=== PATIENT | female | born 1995 | race African-American/Black ===

== ENCOUNTER → 2016-07-18 | Outpatient (CLI) | payer BC, OTHER ==
[~2016-07-18] MED LIST: DEXT-119 PO; HYDR200T5 PO; IBUP-1050 PO; MYCO500T4 PO; OXYC1TAB3 PO; WARF4TAB PO; WARF4TAB8 PO
[2016-07-22 14:17] LABS: CHLAMYDIA TRACH RNA*** NOT DETECTED (NOT DETECTED); GC (NEIS GONORRHOEAE)RNA** NOT DETECTED (NOT DETECTED); HERPES SIMPLEX CULT SOURCE GENITAL-VULVA; HERPES SIMPLEX VIRUS CULT ISOLATED (NOT ISOLATED)
[2016-07-23 13:56] LABS: HSVTYPE2REFLEX ONLY!DON'T ORDR ISOLATED (NOT ISOLATED)
== END | disposition home or self-care (01) ==
LOC: C.LABSPEC 16:21
PROVIDERS: ATTEND Obstetrics & Gynecology
DX: N94.9 Unspecified condition associated with female genital organs and menstrual cycle (principal); N89.8 Other specified noninflammatory disorders of vagina; Z11.3 Encounter for screening for infections with a predominantly sexual mode of transmission

== ENCOUNTER → 2016-07-24 | Outpatient (CLI) | payer BC ==
[2016-07-26 18:32] LABS: HERPES SIMPLEX AB IGG-2 >5.00; HSV1 AB IGM Negative (Negative); HSV2 AB IGM Negative (Negative)
== END | disposition home or self-care (01) ==
LOC: C.LAB1850 12:09
PROVIDERS: ATTEND Obstetrics & Gynecology
DX: A60.00 Herpesviral infection of urogenital system, unspecified (principal)

== ENCOUNTER 2016-08-09 12:59 | Emergency (ER) | payer BC ==
[~2016-08-09] VITALS: Ht 160 cm; Wt 54.8 kg
[~2016-08-09 12:59] MED LIST changes: -DEXT-119 PO; -IBUP-1050 PO; -OXYC1TAB3 PO
[2016-08-09 13:00] VITALS: TEMP 36.9; Ht 160 cm; Wt 54.8 kg
[2016-08-09] MEDS ORDERED: DEXT-119 PO (13:30)
[2016-08-09] MEDS ORDERED: IBUP-1050 PO (13:30)
[2016-08-09] MEDS ORDERED: ONDANSETRON INJ 2 MG/ML 2 ML VIAL IV STA (13:52)
[2016-08-09] MEDS ORDERED: SODIUM CHLORIDE 0.9% 1000ML 1,000 ML IV STA (13:52)
[2016-08-09] MEDS ORDERED: KETOROLAC TROMETHAMINE 30 MG/ML VIAL IV STA (13:52)
[2016-08-09] MEDS ORDERED: OPTIRAY 320 IV PRN (14:15)
[2016-08-09 14:17] LABS: BASO % 0.2 %; BASO ABS # 0.01 K/uL (0-0.2); COMPLETE YES; EOS % 1.5 %; HEMATOCRIT 37.6 % (37-47); IG% 0.4 %; LYMPH % 22.2 %; LYMPH ABS # 1.06 K/uL (1.2-3.4); MEAN CELL VOLUME 81.7 fL (80-100); MEAN CORPUSCULAR HEMOGLOBIN 27.6 pg (25-34); MEAN CORPUSCULAR HGB CONC 33.8 g/dl (32-36); MEAN PLATELET VOLUME 10.2 fL (7.4-10.4); MONO % 6.7 %; PLATELET COUNT 257 K/uL (130-400); WHITE BLOOD COUNT 4.78 K/uL (4.8-10.8)
[2016-08-09 14:36] LABS: ALT/SGPT 21 U/L (12-78); BLOOD UREA NITROGEN 7 mg/dl (7-18); BUN/CREATININE RATIO 11.8 (10-20); CALCIUM 9.4 mg/dl (8.5-10.1); CARBON DIOXIDE 21 mmol/L (21-32); CHLORIDE 104 mmol/L (98-107); CREATININE 0.56 mg/dl (0.60-1.20); GLUCOSE 75 mg/dl (70-99); POTASSIUM 3.8 mmol/L (3.5-5.1); SODIUM 136 mmol/L (136-145)
[2016-08-09 14:38] LABS: ALKALINE PHOSPHATASE 140 U/L (45-117); AST/SGOT 22 U/L (15-37)
[2016-08-09 14:41] LABS: MANUAL MICROSCOPIC REQUIRED? YES; URINE APPEARANCE CLEAR (CLEAR); URINE BILIRUBIN NEG (NEG); URINE COLOR YELLOW; URINE NITRITE NEG (NEG); URINE SPECIFIC GRAVITY >= 1.030 (1.000-1.030); UROBILINOGEN NEG (NEG)
[2016-08-09 14:46] LABS: REVIEW REQ? NO
[2016-08-09 14:56] LABS: URINE BACTERIA 1+ (NEG)
[2016-08-09 14:57] LABS: URINE MUCUS PRESENT (NONE PRSENT)
[2016-08-09 14:58] LABS: ZZUR CULT IF INDIC CLEAN CATCH NO
--- NOTE | 2016-08-09 15:29 | DIAGNOSTIC IMAGING REPORT ---
EXAMINATION: PELVIC ULTRASOUND CLINICAL HISTORY: lower abd pain on right COMPARISON STUDY: None FINDINGS: The uterus measured 7.6 cm. Central gestational sac appearing process at the level of the uterine fundus. A pole is not identified.. The endometrial stripe measured difficult to define. The right ovary measured not well seen. The left ovary measured 2.3 cm maximum dimension. Normal vascular flow. Study is difficult to interpret as there is a suggestion of bulky masslike changes within the pelvis and uterine regions. These appear to be primarily solid with Minimal cystic components. Etiology is unclear. Endometriosis is a diagnostic possibility as are multiple exophytic fibroids. There was no evidence of pathologic free pelvic fluid. IMPRESSION: 1. Difficult scan to interpret. 2. Abnormal soft tissue occupying the bulk of the pelvis and pelvic cul-de-sac in a periuterine distribution. 3. Possible empty intrauterine gestational sac 4. Exophytic fibroids, endometriomas, versus other diagnostic possibilities exist. 5. CT study of the abdominal and pelvic region is suggested Electronically signed by: Enrrique Andrade M.D. 08/09/2016 3:27 PM Dictated Date/Time: 08/09/2016 3:23 PM
--- NOTE | 2016-08-09 17:05 | DIAGNOSTIC IMAGING REPORT ---
ABDOMEN AND PELVIS CT WITH IV AND ORAL CONTRAST CT DOSE: 262.26 mGy.cm HISTORY: Pelvic pain right lower abd pain TECHNIQUE: Multiaxial CT images of the abdomen and pelvis were performed following the use of intravenous and oral contrast. COMPARISON STUDY: None. FINDINGS: Lung bases are clear. Liver spleen and pancreas are uniform. Kidneys enhance uniformly. The upper abdominal bowel pattern is nonobstructive. Gallbladder is negative for distention. There is a small amount of free fluid within the right paracolic gutter region. Terminal ileum is unremarkable. The appendix appears to be identified medially anterior to the right iliopsoas musculature shows no definitive inflammatory change. Evaluation of the pelvis shows a small amount of free ascites. Appears to be a complex soft tissue mass displacing the uterus anteriorly. The ovaries are not identifiable as a independent entities. The soft tissue mass component with cystic components measures 9 x 9 cm. There is again a trace amount of free ascites. Endometrium at the level of the uterine fundus is thickened at 2 cm. There is fluid within the central canal at the level of the fundus. Bladder is midline. Etiology is uncertain on the absence of additional data. Possibility of endometrioma versus diffuse pelvic inflammatory change demonstrated consideration. There are test was positive the possibility of a ruptured ectopic may be a consideration. Nevertheless, the bulk of the findings appear to relate to soft tissue findings. IMPRESSION: 1. Large abnormal soft tissue mass occupying the bulk of the low pelvis. 2. Maximum dimensions are 9 x 9 cm, with evidence for small components of cystic degeneration. 3. Diagnostic considerations must include endometriosis, pelvic inflammatory change, versus a variety of other potential etiologies. 4. The appendix is not well seen although its segmental visualized components appear unremarkable. 5. Trace ascites within the pelvis and right paracolic gutter region. 6. Somewhat distended fundal central uterine canal with mild endometrial prominence 7. MANAGER LINUX consultation is suggested Electronically signed by: Enrrique Andrade M.D. 08/09/2016 5:03 PM Dictated Date/Time: 08/09/2016 4:55 PM
[2016-08-09] MEDS ORDERED: OXYC1TAB3 PO (18:05)
[2016-08-09 18:15] VITALS: BP 98/66; PULSE 67; O2SAT 100
--- NOTE | 2016-08-09 19:39 | EMERGENCY ROOM VISIT NOTE ---
History Report prepared by Andrea: Benito Astorga Under the Supervision of: Dr. Jeb Samuel D.O. First contact with patient: 13:28 Chief Complaint: PELVIC PAIN Stated Complaint: PELVIC PAIN History of Present Illness The patient is a 20 year old female who presents to the Emergency Room with complaints of persistent lower pelvic pain beginning about 3 days ago. She notes she is not due for her cycle for another 10 days. She notes she started having white, non-foul smelling discharge beginning this morning, and began bleeding just recently this afternoon while in the ER. She reports it is not normal for her to have discharge before her period. The patient notes having similar pain before in the past which was determined to be an ovarian cyst that was not removed. She has not had any pain or burning with urination. She has been unable to pass gas, and has not have a full bowel movement. She is sexually active and still has her gallbladder and appendix. She has not started any new medications. She does admit to a history of previous ovarian cyst. Last mental. Was just about 2 weeks ago. Source of History: patient Onset: about 3 days ago Position: pelvis (lower) Quality: other (pelvic pain) Timing: other (persistent) Associated Symptoms: No urinary symptoms Note: The patient reports having white discharge, vaginal bleeding, and difficulty with bowel movements. Review of Systems See HPI for pertinent positives & negatives. A total of 10 systems reviewed and were otherwise negative. Past Medical & Surgical Medical Problems: (1) Lupus (2) Pulmonary embolism (3) TIA (transient ischemic attack) Family History No pertinent family history stated. Social History Smoking Status: Current Every Day Smoker Alcohol Use: none Drug Use: none Occupation Status: [employer] student Current/Historical Medications Scheduled Dextromethorphan-Phenylephrine (Day Time Cold/Flu Relief), 30 ML PO DAILY Hydroxychloroquine Sulfate (Plaquenil), 200 MG PO DAILY Mycophenolate Mofetil (Cellcept), 1,000 MG PO DAILY Warfarin Sodium (Coumadin), 8 MG PO DAILY@2200 Scheduled PRN Ibuprofen (Advil), 200-600 MG PO Q4H PRN for Pain Oxycodone Immediate Rel Tab (Roxicodone Ir), 5 MG PO Q6H PRN for Pain Allergies Coded Allergies: Heparin (Verified Allergy, Intermediate, Hives, 08/09/16) Patient reports that she can take LMWH without problem; gets hives with UFH Fondaparinux (Verified Allergy, Mild, HIVES, 08/09/16) Physical Exam Vital Signs Date Time Temp Pulse Resp B/P Pulse Ox O2 Delivery O2 Flow Rate FiO2 08/09/16 18:15 67 98/66 100 Room Air 08/09/16 16:34 65 20 116/69 95 08/09/16 13:00 36.9 86 20 118/87 97 Room Air Physical Exam GENERAL: Sitting up in bed, alert, well appearing, well nourished, no distress, non-toxic EYE EXAM: normal conjunctiva OROPHARYNX: no exudate, no erythema, lips, buccal mucosa, and tongue normal and mucous membranes are moist NECK: supple, no nuchal rigidity, no adenopathy, non-tender LUNGS: Clear to auscultation. Normal chest wall mechanics HEART: no murmurs, S1 normal and S2 normal ABDOMEN: abdomen soft; minimal tenderness in the suprapubic and right lower quadrant; normo-active bowel sounds, no masses, no rebound or guarding. BACK: Back is symmetrical on inspection and there is no deformity, no midline tenderness, no CVA tenderness. SKIN: no rashes and no bruising UPPER EXTREMITIES: upper extremities are grossly normal. LOWER EXTREMITIES: No pitting edema. NEURO EXAM: Normal sensorium, cranial nerves II-XII grossly intact, normal speech, no gross weakness of arms, no gross weakness of legs. Gross sensation intact. PELVIC: Normal external genitalia; normal vaginal mucosa; small amount of blood in the vaginal vault; cervix is closed. Medical Decision & Procedures ER Provider Diagnostic Interpretation: Radiology results have been interpreted by the radiologist and reviewed by me. ABDOMEN AND PELVIS CT WITH IV AND ORAL CONTRAST FINDINGS: Lung bases are clear. Liver spleen and pancreas are uniform. Kidneys enhance uniformly. The upper abdominal bowel pattern is nonobstructive. Gallbladder is negative for distention. There is a small amount of free fluid within the right paracolic gutter region. Terminal ileum is unremarkable. The appendix appears to be identified medially anterior to the right iliopsoas musculature shows no definitive inflammatory change. Evaluation of the pelvis shows a small amount of free ascites. Appears to be a complex soft tissue mass displacing the uterus anteriorly. The ovaries are not identifiable as a independent entities. The soft tissue mass component with cystic components measures 9 x 9 cm. There is again a trace amount of free ascites. Endometrium at the level of the uterine fundus is thickened at 2 cm. There is fluid within the central canal at the level of the fundus. Bladder is midline. Etiology is uncertain on the absence of additional data. Possibility of endometrioma versus diffuse pelvic inflammatory change demonstrated consideration. There are test was positive the possibility of a ruptured ectopic may be a consideration. Nevertheless, the bulk of the findings appear to relate to soft tissue findings. IMPRESSION: 1. Large abnormal soft tissue mass occupying the bulk of the low pelvis. 2. Maximum dimensions are 9 x 9 cm, with evidence for small components of cystic degeneration. 3. Diagnostic considerations must include endometriosis, pelvic inflammatory change, versus a variety of other potential etiologies. 4. The appendix is not well seen although its segmental visualized components appear unremarkable. 5. Trace ascites within the pelvis and right paracolic gutter region. 6. Somewhat distended fundal central uterine canal with mild endometrial prominence 7. SEAMER E[employer]IC BAND consultation is suggested Electronically signed by: Enrrique Andrade M.D. 08/09/2016 5:03 PM Dictated Date/Time: 08/09/2016 4:55 PM EXAMINATION: PELVIC ULTRASOUND FINDINGS: The uterus measured 7.6 cm. Central gestational sac appearing process at the level of the uterine fundus. A pole is not identified.. The endometrial stripe measured difficult to define. The right ovary measured not well seen. The left ovary measured 2.3 cm maximum dimension. Normal vascular flow. Study is difficult to interpret as there is a suggestion of bulky masslike changes within the pelvis and uterine regions. These appear to be primarily solid with Minimal cystic components. Etiology is unclear. Endometriosis is a diagnostic possibility as are multiple exophytic fibroids. There was no evidence of pathologic free pelvic fluid. IMPRESSION: 1. Difficult scan to interpret. 2. Abnormal soft tissue occupying the bulk of the pelvis and pelvic cul-de-sac in a periuterine distribution. 3. Possible empty intrauterine gestational sac 4. Exophytic fibroids, endometriomas, versus other diagnostic possibilities exist. 5. CT study of the abdominal and pelvic region is suggested Electronically signed by: Enrrique Andrade M.D. 08/09/2016 3:27 PM Dictated Date/Time: 08/09/2016 3:23 PM Laboratory Results 08/09/16 14:05 Red Blood Count 4.60, Mean Corpuscular Volume 81.7, Mean Corpuscular Hemoglobin 27.6, Mean Corpuscular Hemoglobin Concent 33.8, Mean Platelet Volume 10.2, Neutrophils (%) (Auto) 69.0, Lymphocytes (%) (Auto) 22.2, Monocytes (%) (Auto) 6.7, Eosinophils (%) (Auto) 1.5, Basophils (%) (Auto) 0.2, Neutrophils # (Auto) 3.30, Lymphocytes # (Auto) 1.06, Monocytes # (Auto) 0.32, Eosinophils # (Auto) 0.07, Basophils # (Auto) 0.01 08/09/16 14:05 Test 08/09/16 14:05 08/09/16 14:10 08/09/16 17:30 White Blood Count 4.78 K/uL (4.8-10.8) Red Blood Count 4.60 M/uL (4.2-5.4) Hemoglobin 12.7 g/dL (12.0-16.0) Hematocrit 37.6 % (37-47) Mean Corpuscular Volume 81.7 fL (80-100) Mean Corpuscular Hemoglobin 27.6 pg (25-34) Mean Corpuscular Hemoglobin Concent 33.8 g/dl (32-36) Platelet Count 257 K/uL (130-400) Mean Platelet Volume 10.2 fL (7.4-10.4) Neutrophils (%) (Auto) 69.0 % Lymphocytes (%) (Auto) 22.2 % Monocytes (%) (Auto) 6.7 % Eosinophils (%) (Auto) 1.5 % Basophils (%) (Auto) 0.2 % Neutrophils # (Auto) 3.30 K/uL (1.4-6.5) Lymphocytes # (Auto) 1.06 K/uL (1.2-3.4) Monocytes # (Auto) 0.32 K/uL (0.11-0.59) Eosinophils # (Auto) 0.07 K/uL (0-0.5) Basophils # (Auto) 0.01 K/uL (0-0.2) RDW Standard Deviation 42.6 fL (36.4-46.3) RDW Coefficient of Variation 14.4 % (11.5-14.5) Immature Granulocyte % (Auto) 0.4 % Immature Granulocyte # (Auto) 0.02 K/uL (0.00-0.02) Anion Gap 11.0 mmol/L (3-11) Est Creatinine Clear Calc Drug Dose 132.5 ml/min Estimated GFR () > 150.0 Estimated GFR (Non- 134.2 BUN/Creatinine Ratio 11.8 (10-20) Calcium Level 9.4 mg/dl (8.5-10.1) Total Bilirubin 0.3 mg/dl (0.2-1) Direct Bilirubin < 0.1 mg/dl (0-0.2) Aspartate Amino Transf (AST/SGOT) 22 U/L (15-37) Alanine Aminotransferase (ALT/SGPT) 21 U/L (12-78) Alkaline Phosphatase 140 U/L (45-117) Total Protein 9.9 gm/dl (6.4-8.2) Albumin 3.7 gm/dl (3.4-5.0) Lipase 75 U/L (73-393) Urine Color YELLOW Urine Appearance CLEAR (CLEAR) Urine pH 6.0 (4.5-7.5) Urine Specific [place] >= 1.030 (1.000-1.030) Urine Protein 1+ (NEG) Urine Glucose (UA) NEG (NEG) Urine Ketones TRACE (NEG) Urine Occult Blood 3+ (NEG) Urine Nitrite NEG (NEG) Urine Bilirubin NEG (NEG) Urine Urobilinogen NEG (NEG) Urine Leukocyte Esterase NEG (NEG) Urine RBC 5-10 /hpf (0-4) Urine WBC 1-5 /hpf (0-5) Urine Epithelial Cells >30 /lpf (0-5) Urine Bacteria 1+ (NEG) Urine Hyaline Casts 5-10 /lpf (0-5) Urine Mucus PRESENT (NONE PRSENT) Urine Test NEG (NEG) Laboratory results per my review. Medications Administered Medications (Trade) Dose Ordered Sig/Kishan Route Start Time Stop Time Status Last Admin Dose Admin Sodium Chloride (Nss 1000ml) 1,000 ml @ 999 mls/hr Q1H1M STAT IV 08/09/16 13:52 08/09/16 14:52 DC 08/09/16 14:10 999 MLS/HR Ondansetron HCl (Zofran Inj) 4 mg NOW STAT IV 08/09/16 13:52 08/09/16 13:54 DC 08/09/16 14:10 4 MG Ketorolac Tromethamine (Toradol Inj) 30 mg NOW STAT IV 08/09/16 13:52 08/09/16 13:54 DC 08/09/16 14:11 30 MG ED Course ED COURSE: Vital signs were reviewed and showed normal. The patients medical record was reviewed The above diagnostic studies were performed and reviewed. ED treatments and interventions as stated above. 1342: The patient was evaluated in room C1B. A complete history and physical examination was performed. 1352: Ordered Toradol Inj 30 mg IV, Zofran Inj 4 mg IV, and NSS 1,000 ml @ 999 mls/hr IV. 1745: I spoke with Dr. Wyatt. He will see the patient in his office in 2 days. 1610: I reassessed the patient and she is doing well. 1615: Upon reevaluation, the patient is doing well.I discussed my findings with the patient and she understands and agrees with the treatment plan. Based on the patients age, coexisting illnesses, exam and lab findings the decision to treat as an outpatient was made. The patient remained stable while under my care. The patient appeared well at the time of discharge. Medical Decision Differential diagnoses includes but is not limited to gastritis, peptic ulcer disease, GERD, gallbladder disease, pancreatitis, small bowel obstruction, acute coronary syndrome, pericarditis, ischemic bowel, irritable bowel disease, irritable bowel syndrome, appendicitis, diverticulitis, malignancy, hernia, urinary tract infection, torsion, perforation, trauma, infectious. Patient is a 20-year-old female who presents the ER for abdominal pain which started 3 days ago. She notes that it's in her lower pelvic region. She does describe a faint white vaginal discharge which has now turned into vaginal bleeding today. Last menstrual cycle was about 2 weeks ago. Urine was negative. She is due for period in about 10 days. Labs show no significant leukocytosis or anemia. BMP along with LFTs, bilirubin and lipase is unremarkable. UA was contaminated with greater than 30 epithelial cells. GC ankle many were pending. Ultrasound of pelvis shows a large pelvic mass with flow to the left ovary. The right ovary was not well seen secondary to a mass. CT of her abdomen pelvis confirms this and they're uncertain of the true cause of it. Patient rested fairly comfortably and was discussed with gynecology. Patient was given a dose of Toradol and felt significantly better. She is discharged follow-up with oncology on Thursday. She was given a prescription of OxyIR. I favor that her symptoms are likely secondary to this large mass. Discussed with Pt concerning signs and symptoms to watch out for. Pt was instructed to follow up with their PCP and discussed with the patient their option to return to the ED at anytime for persistent or worsening symptoms. The appropriate anticipatory guidance and out-patient management, including indications for return to the emergency department, were explained at length to the patient and understood. [place] Drug Monitoring Program Search Results: patient reviewed within database, no issues identified Consults Time Called: 1739 Consulting Physician: Dr. Wyatt Returned Call: [phone] Wyatt. He will see the patient in his office in 2 days. Impression Primary Impression: Pelvic mass in female Additional Impression: Vaginal bleeding Scribe Attestation The scribe's documentation has been prepared under my direction and personally reviewed by me in its entirety. I confirm that the note above accurately reflects all work, treatment, procedures, and medical decision making performed by me. Departure Information Dispostion Home / Self-Care Prescriptions Oxycodone Immediate Rel Tab (ROXICODONE IR) 5 Mg Tab 5 MG PO Q6H Y for Pain, #15 TAB Prov: Jeb Samuel, 08/09/16 Referrals No Doctor, Assigned (PCP) Patient Instructions ED Pelvic Pain [facility], [facility] Additional Instructions Please follow up with your labor and delivery nurse within the next 24-48 hours. Any worsening of your symptoms, please return to the ED immediately. This includes passing out, worsening bleeding, worsening pain, persistent nausea vomiting, or any other concerning signs or symptoms from your standpoint. You were given medications during this visit that will inhibit your ability to drive, operate machinery and work. Please do NOT drive, operate machinery or work for the next 12hrs. You were also given a prescription for a narcotic/ OxyIR. While taking this medication you should also not drive, operate machinery and or work. Again please call your REHABILITATION SPECIALIST doctor on Thursday morning to be seen as soon as possible. Please refrain from any intercourse. Absolutely nothing in the vagina until you 're seen by your labor and delivery nurse. Problem Qualifiers
[2016-08-12 21:52] LABS: CHLAMYDIA TRACH RNA*** NOT DETECTED (NOT DETECTED); GC (NEIS GONORRHOEAE)RNA** NOT DETECTED (NOT DETECTED)
== END 2016-08-09 18:25 | disposition home or self-care (01) ==
LOC: C.EDB 13:00 → C.EDC 18:25
DX: R19.00 Intra-abdominal and pelvic swelling, mass and lump, unspecified site (principal); N93.9 Abnormal uterine and vaginal bleeding, unspecified; N83.201 Unspecified ovarian cyst, right side; M32.9 Systemic lupus erythematosus, unspecified; F17.200 Nicotine dependence, unspecified, uncomplicated; Z86.73 Personal history of transient ischemic attack (TIA), and cerebral infarction without residual deficits; Z86.711 Personal history of pulmonary embolism; Z79.01 Long term (current) use of anticoagulants; Z79.899 Other long term (current) drug therapy; Z88.8 Allergy status to other drugs, medicaments and biological substances

== ENCOUNTER 2016-08-11 20:06 | Emergency (ER) | payer BC ==
[~2016-08-11] VITALS: Ht 160 cm; Wt 54.5 kg
[~2016-08-11 20:06] MED LIST changes: +DEXT-119 PO; +IBUP-1050 PO; +OXYC1TAB3 PO; -WARF4TAB8 PO
[2016-08-11 20:10] VITALS: Ht 160 cm; Wt 54.5 kg
[2016-08-11] MEDS ORDERED: FENTANYL CITRATE INJ 50 MCG/1 ML 2 ML VIAL IV STA (20:31)
[2016-08-11] MEDS ORDERED: SODIUM CHLORIDE 0.9% 1000ML 1,000 ML IV STA (20:31)
[2016-08-11] MEDS ORDERED: ONDANSETRON INJ 2 MG/ML 2 ML VIAL IV STA (20:31)
--- NOTE | 2016-08-11 20:37 | EMERGENCY ROOM VISIT NOTE ---
History Report prepared by Andrea: Camden Guzmán Under the Supervision of: Dr. Jose Sevilla M.D. First contact with patient: 20:21 Chief Complaint: ABDOMINAL PAIN Stated Complaint: ABDOMINAL PAIN History of Present Illness The patient is a 20 year old female who presents to the Emergency Room with complaints of persistent lower abdominal pain that worsened prior to arrival today. She was diagnosed last year with a mass in her pelvis at [facility], but has not been followed up about it since then. She also has lupus with a history of a blood clot in her lung. Earlier today, the patient passed out, and she gets lightheaded when standing up. She has been nauseous, and was here a few days ago for similar symptoms. While she was here, she had a vaginal exam. The patient notes that she started having diarrhea yesterday, and she has had episodes where she has lost control of her bowels. She says that if she stands up, her bowels go right through her. The patient is currently bleeding from her cycle, but the bleeding is not heavy. She denies any vomiting, as she says that it "hurts too much to vomit". The patient has been anemic before, and had to have a blood transfusion. Source of History: patient Onset: Prior to arrival today Position: abdomen (lower) Timing: worsening Associated Symptoms: + LOC, + diarrhea, + nausea, No vomiting Note: Associated symptoms: Lightheaded when standing up. Episodes where she loses control of bowels. Review of Systems See HPI for pertinent positives & negatives. A total of 10 systems reviewed and were otherwise negative. Past Medical & Surgical Medical Problems: (1) Lupus (2) Pulmonary embolism (3) TIA (transient ischemic attack) Family History No pertinent family history Social History Smoking Status: Current Every Day Smoker Alcohol Use: none Drug Use: none Occupation Status: [employer] student Current/Historical Medications Scheduled Dextromethorphan-Phenylephrine (Day Time Cold/Flu Relief), 30 ML PO DAILY Hydroxychloroquine Sulfate (Plaquenil), 200 MG PO DAILY Mycophenolate Mofetil (Cellcept), 1,000 MG PO DAILY Warfarin Sodium (Coumadin), 8 MG PO DAILY@2200 Scheduled PRN Ibuprofen (Advil), 200-600 MG PO Q4H PRN for Pain Oxycodone Immediate Rel Tab (Roxicodone Ir), 5 MG PO Q6H PRN for Pain Allergies Coded Allergies: Heparin (Verified Allergy, Intermediate, Hives, 08/11/16) Patient reports that she can take LMWH without problem; gets hives with UFH Fondaparinux (Verified Allergy, Mild, HIVES, 08/11/16) Physical Exam Vital Signs Date Time Temp Pulse Resp B/P Pulse Ox O2 Delivery O2 Flow Rate FiO2 08/12/16 00:40 36.5 87 20 118/81 100 08/12/16 00:20 37.0 95 08/12/16 00:20 37.0 98 18 119/80 100 08/12/16 00:20 37.0 98 18 119/80 100 08/12/16 00:15 36.5 96 18 133/88 100 08/12/16 00:12 90 08/12/16 00:10 36.8 98 18 113/76 99 08/11/16 23:43 94 20 105/73 99 Room Air 08/11/16 22:17 115 24 110/61 100 Room Air 08/11/16 20:30 114 08/11/16 20:10 36.9 106 20 113/83 100 Room Air Physical Exam GENERAL: Patient is tired appearing and in moderate distress. HEENT: No acute trauma, normocephalic atraumatic, mucous membranes moist, no nasal congestion, no scleral icterus. Pale conjunctiva. NECK: No stridor, no adenopathy, no meningismus, trachea is midline. LUNGS: No dyspnea. Clear to auscultation and equal bilaterally. No wheeze, no rhonchi. HEART: Mildly tachycardic heart rate and regular rhythm. No murmurs, rubs, gallops appreciated. ABDOMEN: Soft, tenderness to palpation of lower abdomen, bowel sounds positive, no masses appreciated, no peritonitis. BACK: No midline tenderness, no CVA tenderness EXTREMITIES: Normal motion all extremities, no cyanosis, no edema. NEUROLOGIC: Alert and oriented, no acute motor or sensory deficits, no focal weakness, cranial nerves grossly intact. SKIN: No rash, no jaundice, no diaphoresis. PELVIC: Normal external labia/vulva. No bruising, lacerations, lesions. Normal vagina with minimal blood. Anterior Cervix without tenderness. Large uterus vs mass with TTP over right adenexa. Rectal: Large anterior rectal vault mass with minimal stool in rectal vault. Medical Decision & Procedures Laboratory Results 08/11/16 21:00 Red Blood Count 2.64, Mean Corpuscular Volume 82.6, Mean Corpuscular Hemoglobin 28.0, Mean Corpuscular Hemoglobin Concent 33.9, Mean Platelet Volume 11.5, Neutrophils (%) (Auto) 83.1, Lymphocytes (%) (Auto) 8.8, Monocytes (%) (Auto) 7.5, Eosinophils (%) (Auto) 0.2, Basophils (%) (Auto) 0.1, Neutrophils # (Auto) 8.06, Lymphocytes # (Auto) 0.85, Monocytes # (Auto) 0.73, Eosinophils # (Auto) 0.02, Basophils # (Auto) 0.01 08/11/16 21:00 Test 08/11/16 21:00 08/11/16 23:25 White Blood Count 9.70 K/uL (4.8-10.8) Red Blood Count 2.64 M/uL (4.2-5.4) Hemoglobin 7.4 g/dL (12.0-16.0) Hematocrit 21.8 % (37-47) Mean Corpuscular Volume 82.6 fL (80-100) Mean Corpuscular Hemoglobin 28.0 pg (25-34) Mean Corpuscular Hemoglobin Concent 33.9 g/dl (32-36) Platelet Count 217 K/uL (130-400) Mean Platelet Volume 11.5 fL (7.4-10.4) Neutrophils (%) (Auto) 83.1 % Lymphocytes (%) (Auto) 8.8 % Monocytes (%) (Auto) 7.5 % Eosinophils (%) (Auto) 0.2 % Basophils (%) (Auto) 0.1 % Neutrophils # (Auto) 8.06 K/uL (1.4-6.5) Lymphocytes # (Auto) 0.85 K/uL (1.2-3.4) Monocytes # (Auto) 0.73 K/uL (0.11-0.59) Eosinophils # (Auto) 0.02 K/uL (0-0.5) Basophils # (Auto) 0.01 K/uL (0-0.2) RDW Standard Deviation 42.6 fL (36.4-46.3) RDW Coefficient of Variation 14.2 % (11.5-14.5) Immature Granulocyte % (Auto) 0.3 % Immature Granulocyte # (Auto) 0.03 K/uL (0.00-0.02) Red Blood Cell Morphology Unremarkable Prothrombin Time 66.7 SECONDS (9.0-12.0) Prothromb Time International Ratio 5.8 (0.9-1.1) Activated Partial Thromboplast Time 91.3 SECONDS (21.0-31.0) Partial Thromboplastin Ratio 3.5 Anion Gap 10.0 mmol/L (3-11) Est Creatinine Clear Calc Drug Dose 181.0 ml/min Estimated GFR () > 150.0 Estimated GFR (Non- 148.7 BUN/Creatinine Ratio 22.0 (10-20) Calcium Level 8.1 mg/dl (8.5-10.1) Total Bilirubin 0.3 mg/dl (0.2-1) Direct Bilirubin < 0.1 mg/dl (0-0.2) Aspartate Amino Transf (AST/SGOT) 16 U/L (15-37) Alanine Aminotransferase (ALT/SGPT) 12 U/L (12-78) Alkaline Phosphatase 99 U/L (45-117) Troponin I < 0.015 ng/ml (0-0.045) Total Protein 7.4 gm/dl (6.4-8.2) Albumin 2.8 gm/dl (3.4-5.0) Lipase 46 U/L (73-393) Human Chorionic Gonadotropin, Qual NEG (NEG) Urine Color YELLOW Urine Appearance CLEAR (CLEAR) Urine pH 7.0 (4.5-7.5) Urine Specific [place] 1.010 (1.000-1.030) Urine Protein NEG (NEG) Urine Glucose (UA) NEG (NEG) Urine Ketones 2+ (NEG) Urine Occult Blood NEG (NEG) Urine Nitrite NEG (NEG) Urine Bilirubin NEG (NEG) Urine Urobilinogen NEG (NEG) Urine Leukocyte Esterase NEG (NEG) Urine Test NEG (NEG) Medications Administered Medications (Trade) Dose Ordered Sig/Kishan Route Start Time Stop Time Status Last Admin Dose Admin Fentanyl Citrate (Fentanyl Inj) 75 mcg NOW STAT IV 08/11/16 20:31 08/11/16 20:32 DC 08/11/16 20:52 75 MCG Ondansetron HCl 4 mg 4 mg NOW STAT IV 3/20/17 20:31 08/11/16 20:32 DC 08/11/16 20:51 4 MG Sodium Chloride 1,000 ml @ 999 mls/hr Q1H1M STAT IV 08/11/16 20:31 08/11/16 21:43 DC 08/11/16 20:52 999 MLS/HR Phytonadione 10 mg/Sodium Chloride 51 ml @ 102 mls/hr ONE ONCE IV 08/11/16 22:30 08/11/16 22:59 DC 08/11/16 22:54 102 MLS/HR Prothrombin Complex Concent (Human)/Syringe (Kcentra/Syringe) 80 ml @ 10 mls/min TODAY@2245 IV 08/11/16 22:45 08/11/16 23:59 DC 08/11/16 22:44 10 MLS/MIN ED Course 2020: The patient was evaluated in room A9B. A complete history and physical exam was performed. 2030: Ordered NSS 1000 ml @ 999 mls/hr IV, Zofran Inj 4 mg IV, Fentanyl Inj 75 mcg IV. Medical Decision 20 yr old female with pmh of lupus, dvt (right leg age 12), pe (age 12), cva ( right arm weakness 2013). She is on coumadin for this. She notes worsening lower abdominal pain over last few days. Seen in ED 2 days ago for pain and vaginal bleeding and found to have 9x9cm pelvic soft tissue mass. She notes she has been trying to deal with pain at home though is it becoming too severe. She has syncopal event this afternoon which lead to return to ED. She notes severe pelvic pain, improvement of bleeding, and inability to have normal BM over the last week. Admits loss of bowel control this afternoon though she feels it was because urge came on so quickly and she has large amount very much liquid stool. We obtained records form [facility] where she was evaluated in October 2015 for pelvic mass and pain. [place] to be endometrioma which by MRI 09/2015 was 7.5 x 4.5 cm and US 07/2015 was 6cm. It was felt surgical approach with too many complications at that time and thus she was discharged with outpatient monitoring planned. Patient given Fentanyl for pain, Zofran for nausea and IV fluids. Exam consistent with large pelvic mass which seems to be more to right. I suspect it is so large that it is blocking ability to have normal BM, thus rather than diarrhea she may be having severe constipation and resultant liquid flow around mass only. She now has had precipitous drop in Hgb from 12 just a few days ago to 7 today. With severely elevated INR, increasing pain and syncope clearly needs repeat imaging to rule out intraabdominal hemorrhage. Mild tachy though BP remaining stable. She if feeling much improved with IV fentanyl and even after a few hours in minimal distress. CT showing large amount of intraabdominal free fluid along with mass. Given K-centra along with Vit K. 4 Units PRBC ordered. I made clear to patient the risks of clotting given her history though we need to stop her from bleeding out and she agrees and understands. Furthermore, she freely gave verbal and written consent for blood transfusion (as well later on the central line). Anesthesia and [employer] down to help with case. [employer] feels that patient needs to be transferred to higher level of care, for which I agree. Discussed at length with Dr Gilmore at [facility] who accepts for transfer along with Critical Care Anesthesia. Agree with plan to transfuse and if stable transfer. Will need transfer via air. She is stable and still feeling well. Many repeat evaluations of patient. Discussed case with her mother and case management did so with her grandmother. With just single IV after discussion with Anesthesia they will place right IJ central line due to her coagulopathy, need for further blood products and her illness. This will allow safer transport and will give further monitoring time in ED prior to transfer. Given some fentanyl/zofran prior to central line placement. With Central Line in she received initial 2 Unites PRBC via warmer over short amount of time. CXR with deep right IJ thus we in sterile fashion moved line back 6-7 cm. No pneumothorax. Patient stable, feeling well. BP and HR excellent. Getting 2 more units over standard 1 hour time. She is happy and very pleasant throughout entire stay. Impression Primary Impression: Pelvic mass in female Additional Impressions: Acute blood loss anemia Intra abdominal hemorrhage Supratherapeutic INR Critical Care I have personally spent greater than 180 minutes of critical care time in the direct management of this patient. This was a life/limb threatening event. This includes time spent evaluating patient, direct bedside care, chart review, placing orders, interpretation of diagnostic studies, discussion with consultants, patient, and family members, as well as other required patient management activities. This 180 minutes is in excess of all separately billable procedures. Scribe Attestation The scribe's documentation has been prepared under my direction and personally reviewed by me in its entirety. I confirm that the note above accurately reflects all work, treatment, procedures, and medical decision making performed by me. Departure Information Referrals [facility] (PCP) Patient Instructions [facility] Problem Qualifiers
[2016-08-11 21:43] LABS: PREG INTERNAL NEGATIVE QC NEG CLEAR BACKGROUND; PREG INTERNAL POSITIVE QC POS CONTROL LINE
[2016-08-11 21:44] LABS: PARTIAL THROMBOPLASTIN RATIO 3.5; PROTHROMBIN TIME (PATIENT) 66.7 SECONDS (9.0-12.0)
[2016-08-11 21:45] LABS: HEMATOCRIT 21.8 % (37-47); MEAN CELL VOLUME 82.6 fL (80-100); MEAN CORPUSCULAR HGB CONC 33.9 g/dl (32-36); MEAN PLATELET VOLUME 11.5 fL (7.4-10.4); PLATELET COUNT 217 K/uL (130-400); RED BLOOD COUNT 2.64 M/uL (4.2-5.4)
[2016-08-11 21:46] LABS: ALT/SGPT 12 U/L (12-78); BLOOD UREA NITROGEN 9 mg/dl (7-18); CALCIUM 8.1 mg/dl (8.5-10.1); CARBON DIOXIDE 21 mmol/L (21-32); CHLORIDE 107 mmol/L (98-107); CREATININE 0.41 mg/dl (0.60-1.20); GLUCOSE 82 mg/dl (70-99); POTASSIUM 3.7 mmol/L (3.5-5.1); SODIUM 138 mmol/L (136-145)
[2016-08-11 21:48] LABS: INR 5.8 (0.9-1.1)
[2016-08-11 21:55] LABS: ALKALINE PHOSPHATASE 99 U/L (45-117); AST/SGOT 16 U/L (15-37)
[2016-08-11 21:57] LABS: BASO % 0.1 %; BASO ABS # 0.01 K/uL (0-0.2); COMPLETE YES; EOS % 0.2 %; IG% 0.3 %; LYMPH % 8.8 %; LYMPH ABS # 0.85 K/uL (1.2-3.4); MONO % 7.5 %; NEUT % 83.1 %
[2016-08-11] MEDS ORDERED: PHYTONADIONE INJ 10 MG in SODIUM CHLORIDE 0.9% 50ML 50 ML IV ONE (22:30)
--- NOTE | 2016-08-11 22:30 | DIAGNOSTIC IMAGING REPORT ---
CT ABD/PELVIS IV CONTRAST ONLY CLINICAL HISTORY: abdominal pain, mass, anemia, elevated INR, worsening pain COMPARISON STUDY: 08/09/2016 TECHNIQUE: Following the IV administration of 91 mL of Optiray-320, CT scan of the abdomen and pelvis was performed from the lung bases to the proximal femurs. Images are reviewed in the axial, sagittal, and coronal planes. IV contrast was administered without complication. CT DOSE: 256.45 mGy.cm FINDINGS: Lower chest: The heart is normal in size and configuration, without pericardial effusion. The lung bases and pleural spaces are clear. Liver: The contrast-enhanced liver is normal in size, contour, and attenuation. There is no intrahepatic biliary ductal dilatation. The hepatic veins and portal veins are patent. Gallbladder: Unremarkable. Spleen: Normal in size and attenuation. Pancreas: Unremarkable. Adrenal glands: Unremarkable. Kidneys: There is symmetric renal cortical enhancement. The kidneys are normal in size without hydronephrosis. Bowel: There are no transition zones indicate bowel obstruction. Peritoneum: There is moderate free intraperitoneal fluid, likely cysts secondary to hemoperitoneum. This finding is increased significantly when compared the preceding study. Vasculature: The abdominal aorta is normal in course and caliber. Adenopathy: None. Pelvic viscera: Evaluation is very limited given the lack of oral contrast. There is a heterogeneous pelvic mass which cannot be from multiple pelvic bowel loops as well as the presumed hemoperitoneum. Gynecological consultation is recommended. Skeletal structures: No destructive osseous lesions are seen. IMPRESSION: 1. Moderate free peritoneal fluid. This exceeds water attenuation and may represent hemoperitoneum 2. Large heterogeneous pelvic mass (hematoma versus other). 3. Emergent gynecological consultation is recommended. Electronically signed by: Eugene Boss M.D. 08/11/2016 10:29 PM Dictated Date/Time: 08/11/2016 10:22 PM
[2016-08-11] MEDS ORDERED: BUPIVACAINE 0.5 % 5 MG/1 ML MPF 30ML VIAL ONE (22:36)
[2016-08-11] MEDS ORDERED: LIDOCAINE HCL 1% 20 ML VIAL ONE (22:41)
[2016-08-11] MEDS ORDERED: PROTHROMBIN COMP CONC- KCENTRA 2,000 UNIT in SYRINGE 0 ML IV SCH (22:45)
[2016-08-11] MEDS ORDERED: FENTANYL CITRATE INJ 50 MCG/1 ML 2 ML VIAL ONE (23:42)
[2016-08-11] MEDS ORDERED: ONDANSETRON INJ 2 MG/ML 2 ML VIAL ONE (23:45)
[2016-08-12] VITALS (8 sets, daily range): BP systolic 111–133; BP diastolic 73–88; PULSE 37–99; TEMP 36.5–37; O2SAT 97–100
[2016-08-12 00:06] LABS: MANUAL MICROSCOPIC REQUIRED? NO; URINE APPEARANCE CLEAR (CLEAR); URINE BILIRUBIN NEG (NEG); URINE COLOR YELLOW; URINE NITRITE NEG (NEG); UROBILINOGEN NEG (NEG)
[2016-08-12 00:14] LABS: REVIEW REQ? NO
--- NOTE | 2016-08-12 00:14 | Procedure Note ---
Procedure Note Date of Service Aug 12, 2016. Procedure Note Patient tachycardic, losing blood in to abdomen. Patient was seen and evaluated ER doctor and Dr Khan and will be transported to [facility] due to the complex nature of the surgery and anticipated prolonged ICU course. However, she does need resuscitation with fluids and blood first. Multiple attempts at peripheral IV access resulted in only 1 peripheral 20G IV, thus I was asked to place a central line to improve access and continue resuscitation. Due to the coagulopathy, anesthesia was consulted for line placement. Risks and benefits were discussed. Due to her history of L Carotid dissection, the R IJ site was chosen. Procedure: R Neck was prepped and draped in a sterile fashion. Skin was localized with lidocaine 1%. RIJ was cannulated under dynamic ultrasound guidance and a wire was placed. US was used to confirm wire placement in the vein and not in the artery. The vein was dilated and a 7F 3L catheter was placed. All 3 ports were aspirated and flushed successfully. A biopatch was placed and the line was sutured in place before a sterile dressing. CXR ordered.
[2016-08-12 00:17] LABS: ZZURINE CULT IF INDIC CATH NO
--- NOTE | 2016-08-12 00:45 | CONSULTATION REPORT ---
DATE OF CONSULTATION: 08/11/2016 REASON FOR CONSULT: Hemoperitoneum, pelvic mass. HISTORY OF PRESENT ILLNESS: Feng is a 20-year-old -[place] female, 0, who presents to the Emergency Department for the second time in 2 days. The patient has a known pelvic mass that she has been followed for at [facility] as she lives in that area. She has a history of abdominal pain and an ultrasound at an outside facility showed it is a heterogeneous mass suspicious for adnexal, uterine or urachal mass. This ultrasound revealed right ovary measuring 6.1 x 3.9 x 4.7 cm with a 4 cm simple cyst, the left ovary measured 2.4 x 2.4 x 3.1 cm. She had an MRI shortly thereafter revealing right ovary measuring 5.5 x 4.2 and her left ovary measuring 4 x 2.3 cm and it was suspected that she had an endometrioma. This mass was asymptomatic. She had a followup ultrasound and was told that this was stable and so there was no further followup until 2 days ago when she had increasing onset of abdominal pain. It began approximately 3 days prior to her first ED evaluation on 08/09/2016. She noted some white discharge beginning in the morning and began bleeding in the afternoon, this period came a little bit late. She has had similar pain as this before and it was determined that this was the ovarian cyst. She had no urinary symptoms. She had been unable to pass gas and has not had a full bowel movement. She is sexually active. At that point in time, she had an abdominal pelvis CT which showed a large abnormal soft tissue mass occupying the bulk of the low pelvis, the maximal dimension was 9.9 cm with evidence of soft small components of cystic degeneration. The appendix was not well visualized. There was trace ascites within the pelvis and the right pericolic gutter. There was a somewhat distended fundal central uterine cavity with mild endometrial prominence. Urine test was negative. The pelvic ultrasound revealed right ovary that was not well seen, the left ovary measured 2.3 cm in maximal dimension. There appears to be primary solid and minimally cystic bulky mass-like changes within the pelvis and uterine regions. The etiology included endometriosis, endometrioma, multiple exophytic fibroids. Her hemoglobin at that time was 12.7, white count was 4.78, platelet count was 257,000. She was evaluated. She was given IV Toradol and Zofran. Curtain Mender was consulted on the phone and followup in 2 days. She was given precautions and sent home. She returns to the Emergency Department today. She notes that she had sudden acute onset of worsening pain prior to arrival. She also passed out for a short period of time because of the pain. She gets lightheaded and dizzy when standing up. She has been nauseated. She started having some loose stools yesterday. The patient is currently in her cycle which started on Thursday. The patient's history is complicated. She has a history of systemic lupus erythematosus diagnosed when she was age 11 and then within that year she had a lower extremity DVT with a pulmonary embolus. She has been on anticoagulation since that time. She was first started on Lovenox, and then when she was 14, she started on Coumadin. She followed in the [facility] here. She was last seen in [facility] 2 weeks ago where she had blood work done and was told to follow up for another blood draw in a couple weeks. She was unable to do that because of illness. Her current Coumadin dose is 8 mg and she was not told that she would need to change that at all. Additionally, the patient also had a couple of TIAs about 2 years ago. 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 PAST OBSTETRICS AND GYNECOLOGIC HISTORY: This patient notes her last menstrual period was on Thursday. She has a period every 2-3 weeks and it has been irregular since this ovarian mass was first identified in September. She is sexually active. She has been with her current partner since December. She admits to 8 sexual partners. She admits that she has a history of recently diagnosed HSV disease and was seen early in this year by our physician pharmacy affairs assistant, Elizabeth Zaragoza. She uses condoms for contraception with every act of intercourse. She has never been . She thinks she might have had a Pap smear but it has been quite some time ago. ALLERGIES: HEPARIN AND FONDAPARINUX. WITH HEPARIN, SHE GETS HIVES. MEDICATIONS: Include a daytime cold relief formula, Plaquenil 200 mg daily, CellCept 1000 mg daily, and Coumadin 8 mg daily. She also takes Advil as needed and was recently given Roxicodone when she was in the Emergency Department for discomfort. SURGICAL HISTORY: She has had dental surgery, tonsils and adenoids removed, and eye surgery. PAST MEDICAL HISTORY: As noted above for lupus, pulmonary embolism with DVT, TIA, carotid artery dissection, also keloids. SOCIAL HISTORY: The patient is a college student, she studies criminology. She does admit to occasional tobacco products. She denies regular alcohol use. She denies any drug use. REVIEW OF SYSTEMS: See as noted above. The patient notes that her pain is worse anytime she moves or when she has tried to have a bowel movement. PHYSICAL EXAMINATION: GENERAL: This is a well-developed, well-nourished -[place] female who appears to be resting comfortably in the bed. She notes that when she is at rest, her pain is a 2/10. NECK: Supple without thyromegaly or lymphadenopathy. ABDOMEN: Soft. There is tenderness to palpation of the lower abdomen. No appreciable masses. There is guarding, but no significant rebound. BACK: Without costovertebral angle tenderness. EXTREMITIES: Normal. PELVIC: Normal appearing external female genitalia. Bimanual exam is the only exam performed. The cervix is nulliparous. It is very anterior. There is a large 9-10 cm pelvic mass filling the posterior cul-de-sac. It is fixed. This is confirmed by rectovaginal exam. There is no stool in the rectal vault. The pelvic exam is tender throughout. With removal of the vaginal glove, there is some minimal blood noted. There is tenderness to palpation of this mass. VITAL SIGNS: Temperature is 36.9, pulse 106-115, respirations 20-24. Two blood pressures taken, 113/83 and 110/61. LABORATORY DATA: Today, her hemoglobin is 7.4, hematocrit 21.8, platelets 217,000. Her INR today is 5.8. This was not performed with her previous hospitalization. Her CMP is essentially normal. Her qualitative hCG is negative. IMAGING: Today is a CT scan which is read as moderate free intraperitoneal fluid, likely cyst secondary to hemoperitoneum. This finding has increased significantly when compared to the preceding study. Large heterogeneous pelvic mass. ASSESSMENT: This is a 20-year-old -[place] female with a history of lupus, deep vein thrombosis, pulmonary embolism, and transient ischemic attack, who has a known 9 x 9 cm pelvic mass. In the past 2 days, she has dropped her hemoglobin from 12 to 7.4 and she now has hemoperitoneum. She is not, however, hemodynamically unstable at this time. I am very concerned that this mass is obviously bleeding, but I am very concerned that this pelvic mass is fixed and tender. It is still in the posterior cul-de-sac. It is likely adherent to the posterior uterus and bowel. I feel that it is in her best interest before the patient does become hemodynamically unstable, that she be transferred urgently to the [facility] for evaluation and likely surgical intervention there. The Emergency Department doctor, Dr. Sevilla has been working closely with this patient and he has spoken with Dr. Gilmore and the ICU team at the [facility] and they have accepted her in transfer. The patient's blood pressure is stable. She is slightly tachycardic but certainly not worsening. While talking to the patient, she was texting on her phone. She does not have an acute abdomen at this time but certainly has signs and symptoms consistent with blood in her belly with significant increased discomfort with movement. She will be transfused between 2-4 units of blood and she will be helicoptered out to the [facility] who has accepted her in transfer. I feel that this is in the patient's best interest because she may need multiple blood products, particularly platelets or coagulation factors that we are not easily able to provide her at our facility and that it is probably going to be a quite complicated surgery requiring colorectal surgeons as well as [employer]CTOR oncologist and I feel her best chance of a successful surgery would be at the [facility]. This was discussed with the patient and her mentor who is a very good friend of hers and is with her. She is agreeable to transfer and we plan on transferring the patient to [facility]. GURDEEP
--- NOTE | 2016-08-12 07:14 | DIAGNOSTIC IMAGING REPORT ---
SINGLE VIEW CHEST CLINICAL HISTORY: Central venous catheter placement. FINDINGS: An AP, portable, upright chest radiograph is correlated with chest CT dated 03/12/2016. The examination is mildly degraded by portable technique and patient rotation. A right internal jugular central venous catheter is been placed. The tip of the catheter projects just above the diaphragm over the right atrium. The cardiomediastinal silhouette is unremarkable. The lungs and pleural spaces are clear. No pneumothorax is seen. The bony thorax is grossly intact. IMPRESSION: 1. The lungs are clear. 2. A right internal jugular central venous catheter has been placed. The tip of the catheter projects just above the diaphragm over the right atrium. 3. No pneumothorax is seen. Electronically signed by: Mich Parmar M.D. 08/12/2016 7:12 AM Dictated Date/Time: 08/12/2016 7:11 AM
== END 2016-08-12 01:24 | disposition short-term general hospital (02) ==
LOC: EDBD 20:06 → C.EDA 20:07
DX: R19.09 Other intra-abdominal and pelvic swelling, mass and lump (principal); R79.1 Abnormal coagulation profile; D62 Acute posthemorrhagic anemia; M32.9 Systemic lupus erythematosus, unspecified; Z86.718 Personal history of other venous thrombosis and embolism; Z86.711 Personal history of pulmonary embolism; Z86.73 Personal history of transient ischemic attack (TIA), and cerebral infarction without residual deficits; Z79.01 Long term (current) use of anticoagulants

== ENCOUNTER → 2017-02-06 | Outpatient (CLI) | payer BC | END | disposition home or self-care (01) | LOC: C.LABSPEC 17:33 | PROVIDERS: ATTEND Physician Assistant | DX: R10.2 Pelvic and perineal pain (principal); N94.10 Unspecified dyspareunia ==

== ENCOUNTER → 2017-08-20 | Outpatient (CLI) | payer BC ==
[~2017-08-20] MED LIST changes: -OXYC1TAB3 PO
[2017-08-20 11:59] LABS: INR 1.9 (0.9-1.1)
== END | disposition home or self-care (01) ==
LOC: C.LABSPEC 11:25
PROVIDERS: ATTEND Pediatrics
DX: D68.61 Antiphospholipid syndrome (principal); M32.9 Systemic lupus erythematosus, unspecified; Z86.718 Personal history of other venous thrombosis and embolism